=== PATIENT | male | born 1990 | race Caucasian/White ===

== ENCOUNTER 2021-03-25 13:26 | Emergency (ER) | payer SELFPAY ==
[2021-03-25 13:32] VITALS: BP 152/101; PULSE 100; RESP 16; TEMP 36.6; O2SAT 96; BMI 43.7
--- NOTE | 2021-03-25 15:25 | W.ED.NECK ---
Documented by User: Elida Jeremycarli 03/25/21 15:53 HPI - Neck Pain/Injury General: Chief Complaint: Neck Pain/Injury Stated Complaint: PAINS IN NECK Time Seen by Provider: 03/25/21 15:14 Source: patient Mode of arrival: ambulatory Limitations: no limitations History of Present Illness: HPI Narrative: 30-year-old male patient presents to the emergency department with a mass to his left side of his neck. Patient states he has had this for almost a year and his primary care physician has been monitoring it as it started out small patient states over the last few days it he noticed it has grown quite a bit is hard and painful. Patient denies any difficulty swallowing. Patient denies any chest pain or shortness of breath. Patient denies any fever. Patient denies any recent illness. Patient states he is otherwise healthy. Associated symptoms: Denies dysphagia, difficulty walking, dizziness, headache(s) or nausea Review of Systems Const: Denies: fever(s), chills, body aches, change in appetite, change in weight, fatigue, malaise or diaphoresis Eyes: Denies: change in vision, blurry vision, blind spots, photophobia, eye discomfort, eye discharge, eye redness, floaters or seeing flashes ENMT: Reports: other (Neck pain with mass to left side of neck); Denies: throat pain, uvular edema, enlarged tonsils, odynophagia, hoarseness, mouth pain, swelling of lips/tongue, oral sores, bleeding gums, dental pain, dry mouth, ear or mastoid pain, ear discharge, change in hearing, tinnitus, disequilibrium, nasal discharge, nasal congestion, post nasal drip or sinus pain Card: Denies: chest pain, palpitations, irregular heart rhythm, edema, swelling of feet/ankles, lightheadedness, syncope, pre-syncope, dyspnea on exertion, orthopnea, leg pain with exertion or acrocyanosis Resp: Denies: dyspnea, productive cough, non-productive cough, wheezing, stridor, pain on inspiration, change in phlegm color, hemoptysis or chest congestion GI: Denies: abdominal pain, nausea, vomiting, hematemesis, dysphagia, diarrhea, constipation, GI cramping, change in bowel habits or rectal pain : Denies: flank pain, dysuria, urinary frequency, urinary urgency, urinary hesitancy or hematuria Musc: Denies: neck pain, back pain, extremity pain, extremity swelling, joint pain, joint swelling, joint redness, joint warmth or deformity Skin/Breast: Denies: rash, pruritus, erythema, sores, new lesions, changes in skin color or dry skin Neuro: Denies: headache(s), numbness in extremities, weakness in extremities, sensory changes, lack of coordination, difficulty walking, frequent falls, dizziness, vertigo, confusion, behavioral changes, Slurred speech present, difficulty communicating thoughts or seizure-like activity Psych: Denies: anxiety, depression, suicidal ideation or homicidal ideation Endo: Denies: polyuria, polydipsia, tired all the time, cold intolerance, excessive sweating, flushing, hot flashes or heat intolerance Efra/Lymph: Denies: easy bruising, easy bleeding, petechiae, purpura, enlarged lymph nodes or tender lymph nodes All/Imm: Denies: urticaria, throat swelling, tongue swelling, facial swelling, acute wheezing or itchy eyes Physical Exam Const: COMMON NORMALS: no acute distress, average body habitus, no limitations, healthy appearing, alert and well nourished HENMT: COMMON NORMALS: normocephalic, atraumatic, hearing grossly normal bilaterally, external ears normal, EAC's normal, TM's normal bilaterally, Normal external nose present, Normal nasal mucous membranes and turbinates present, moist oral mucous membranes, oropharynx normal, dentition normal and gingiva normal HEAD & SCALP: normocephalic and atraumatic NOSE: Normal external nose present and Normal nasal mucous membranes and turbinates present EXTERNAL EAR: Yes external ears normal EXTERNAL AUDITORY CANAL: EAC's normal TYMPANIC MEMBRANE: TM's normal bilaterally THROAT: no uvular edema Eye: COMMON NORMALS: Equal, round and reactive pupils present, EOMs intact bilaterally, conjunctivae normal, no scleral icterus and no papilledema CONJUNCTIVA: Yes conjunctivae normal PUPIL: Yes Equal, round and reactive pupils present DIRECT OPHTHALMOSCOPY: Yes no papilledema Neck/C-Spine: COMMON NORMALS: no JVD Lymph: LYMPHATIC: no lymphadenopathy noted Resp: COMMON NORMALS: normal respiratory effort, No retractions, No use of accessory muscles, clear to auscultation bilaterally and percussion normal AUSCULTATION: clear to auscultation bilaterally PERCUSSION: percussion normal Cardio: COMMON NORMALS: no JVD, regular rate and regular rhythm RATE: regular rate RHYTHM: regular rhythm Neuro: SENSORIUM/ORIENTATION: Yes alert Psych: COMMON NORMALS: mental status grossly normal, Normal thought process present, cooperative, normal affect, speech normal, activity/motor behavior normal, denies hallucinations, denies homicidal ideation and denies suicidal ideation SPEECH: Yes normal speech THOUGHT PROCESS: Normal thought process present Skin: COMMON NORMALS: no rashes or lesions noted, no wounds, turgor normal, no jaundice, no petechiae and no mottling GENERAL SKIN EXAM: no rashes or lesions noted and turgor normal Course Vital Signs: Vital signs: Vital Signs Temperature 98 F 03/25/21 13:32 Pulse Rate 90 03/25/21 18:29 Respiratory Rate 16 03/25/21 18:29 Blood Pressure 149/92 03/25/21 18:29 Pulse Oximetry 96 03/25/21 18:29 MDM - Neck Pain/Injury Lab Data: Labs: Lab Results 03/25/21 03/25/21 Range/Units 17:00 17:00 WBC 11.7 H (4.0-10.0) 10^3/ uL RBC 4.91 (4.1-5.3) 10^6/u L Hgb 13.9 (11.7-16.6) g/dL Hct 43.4 (42.0-52.0) % MCV 88.4 (80-94) fL MCH 28.3 (28.0-34.0) pg MCHC 32.0 (30.0-36.0) g/dL RDW 13.5 (12.1-15.1) % Plt Count 341 (130-400) 10^3/c mm MPV 9.8 (7.4-10.4) fL Neut % (Auto) 68.2 % Lymph % (Auto) 20.1 % [place] % (Auto) 9.0 % Eos % (Auto) 1.5 % Baso % (Auto) 0.8 % Neut # (Auto) 7.95 H (1.8-7.7) 10^3/u L Lymph # (Auto) 2.3 (0.8-4.8) 10^3/u L [place] # (Auto) 1.1 H (0.2-0.9) 10^3/u L Eos # (Auto) 0.2 (0.0-0.8) 10^3/u L Baso # (Auto) 0.1 (0.0-0.1) 10^3/u L Nucleated RBC % (a uto) 0 % Nucleated RBCs # 0.0 /100WBC Sodium 133 L (136-145) mmol/L Potassium 4.0 (3.5-5.1) mmol/L Chloride 97 L (98-107) mmol/L Carbon Dioxide 28 (22-29) mmol/L Anion Gap 12.0 (5-19) BUN 12 (6-20) mg/dL Creatinine 0.7 (0.7-1.2) mg/dL GFR Calculation 132.4 H (90-130) mL/min Glucose 92 (65-115) mg/dL Calculated Osmolal ity 275 L (285-295) mOsm/k g Calcium 9.3 (8.5-10.5) mg/dL Total Bilirubin 0.5 (0.15-1.2) mg/dL AST 16 (0-40) U/L ALT 21 (0-41) U/L Alkaline Phosphata se 88 (40-130) IU/L Total Protein 7.3 (6.6-8.7) g/dL Albumin 4.1 (3.5-5.2) g/dL Globulin 3.2 (1.3-4.6) g/dL Discharge Plan Discharge Patient Disposition: Home Clinical Impression: Mass of soft tissue of neck, Lymph nodes enlarged Condition: Stable Prescriptions: New Augmentin 500-125 mg tablet 1 tab PO BID 10 Days Qty: 20 RF: 0 Medrol (Shorty) 4 mg tablets,dose pack See Rx Instructions .ROUTE .COMPLEX Qty: 21 RF: 0 Discharge Orders: Discharge ED (Routine); Ordered 03/25/21 Ordered By: Yordan Castillo Discharge Diet: Regular Discharge Activity: Resume usual activity Patient Instructions: Lymphadenopathy (ED) Activity Restrictions/Additional Instructions: Follow-up with medical provider as directed. associate store manager only contacting you in the next several days to set up an appointment with ENT for further evaluation and biopsy. You can start taking your steroid Dosepak tomorrow morning. The rest of the prescriptions you can get filled tonight and take first dose tonight. Take medications as prescribed. Return to the ER or your medical provider if condition worsens. Please read and understand discharge instructions. Thank you for choosing [facility] for your healthcare needs today. Please realize this is an emergency room and that we are providing you with a medical screening exam and this may not be complete and all inclusive of all the testing and or work up that you may need to determine your ailment or severity of your illness. It is very important that you follow up as instructed or that you return to the Emergency Department should you have concerns or if your condition changes or worsens in any way. Sign Out Sign Out Data: Patient Sign Out occurred on 03/25/21 at 17:11. Patient's care was discussed, and care was transferred from to JULIET Costello. Coding Level of Care Code ED Shaft Sinker for Chg Fwd Exam Comprehensive Documented by User: JULIET Costello 03/25/21 18:59 HPI - Neck Pain/Injury General: Chief Complaint: Neck Pain/Injury Stated Complaint: PAINS IN NECK Time Seen by Provider: 03/25/21 15:14 Course Vital Signs: Vital signs: Vital Signs Temperature 98 F 03/25/21 13:32 Pulse Rate 90 03/25/21 18:29 Respiratory Rate 16 03/25/21 18:29 Blood Pressure 149/92 03/25/21 18:29 Pulse Oximetry 96 03/25/21 18:29 MDM - Neck Pain/Injury MDM Narrative: Medical decision making narrative: Patient is a 30-year-old male comes to the ED with a mass on left side of neck. Patient says it is painful now but does not obstruct his airway. Patient denies any other symptoms. CBC and CMP were unremarkable. CT of neck showed multiple enlarged lymph nodes with some fat stranding on the left carotid chain. Also a soft tissue density encasing the distal left common carotid artery with fat stranding present as well. Unknown if it is infectious, inflammatory or neoplastic. Radiologist recommended a tissue biopsy to be done. I placed an order with case management for patient be referred to an ENT doctor to get a biopsy done. Patient was discharged home given a prescription for Augmentin and a Medrol Dosepak. I also sent him home with a prescription for written hydrocodone 5/325 mg 8 tablets for pain. Return to ED precautions given. I told patient that special education case manager only contacting the next several days set up an appoint with ENT to get further evaluation of neck mass. Patient understood and agreed with plan. Lab Data: Attestation: I reviewed the patient's lab results. Labs: Lab Results 03/25/21 03/25/21 Range/Units 17:00 17:00 WBC 11.7 H (4.0-10.0) 10^3/ uL RBC 4.91 (4.1-5.3) 10^6/u L Hgb 13.9 (11.7-16.6) g/dL Hct 43.4 (42.0-52.0) % MCV 88.4 (80-94) fL MCH 28.3 (28.0-34.0) pg MCHC 32.0 (30.0-36.0) g/dL RDW 13.5 (12.1-15.1) % Plt Count 341 (130-400) 10^3/c mm MPV 9.8 (7.4-10.4) fL Neut % (Auto) 68.2 % Lymph % (Auto) 20.1 % Assumption % (Auto) 9.0 % Eos % (Auto) 1.5 % Baso % (Auto) 0.8 % Neut # (Auto) 7.95 H (1.8-7.7) 10^3/u L Lymph # (Auto) 2.3 (0.8-4.8) 10^3/u L Assumption # (Auto) 1.1 H (0.2-0.9) 10^3/u L Eos # (Auto) 0.2 (0.0-0.8) 10^3/u L Baso # (Auto) 0.1 (0.0-0.1) 10^3/u L Nucleated RBC % (a uto) 0 % Nucleated RBCs # 0.0 /100WBC Sodium 133 L (136-145) mmol/L Potassium 4.0 (3.5-5.1) mmol/L Chloride 97 L (98-107) mmol/L Carbon Dioxide 28 (22-29) mmol/L Anion Gap 12.0 (5-19) BUN 12 (6-20) mg/dL Creatinine 0.7 (0.7-1.2) mg/dL GFR Calculation 132.4 H (90-130) mL/min Glucose 92 (65-115) mg/dL Calculated Osmolal ity 275 L (285-295) mOsm/k g Calcium 9.3 (8.5-10.5) mg/dL Total Bilirubin 0.5 (0.15-1.2) mg/dL AST 16 (0-40) U/L ALT 21 (0-41) U/L Alkaline Phosphata se 88 (40-130) IU/L Total Protein 7.3 (6.6-8.7) g/dL Albumin 4.1 (3.5-5.2) g/dL Globulin 3.2 (1.3-4.6) g/dL Imaging Data^: Other CT: Attestation: I personally reviewed and interpreted this imaging study as follows: Radiologist's impression: [id number] [address] [address] Scan Report Signed Patient: Deric Carson Unit #: [id number] : 1990 Age/Sex: 30 / M ADM Date: 03/25/21 Loc: ER Room/Bed: Attending Dr: Ordering Provider/Ordering MD: Elida Puri NP Date of Service: 03/25/21 Procedure(s): CT neck w con* [id number] Accession Number(s): [id number] Report Number: [id number] PROCEDURE INFORMATION: Exam: CT Neck With Contrast Exam date and time: 03/25/2021 3:28 PM Age: 30 years old Clinical indication: Mass, lump, or swelling in neck; Left; Additional info: Soft tissue - left sided mass and pain TECHNIQUE: Imaging protocol: Computed tomography images of the neck with contrast. Radiation optimization: All CT scans at this facility use at least one of these dose optimization techniques: automated exposure control; mA and/or kV adjustment per patient size (includes targeted exams where dose is matched to clinical indication); or iterative reconstruction. Contrast material: OMNI 300; Contrast volume: 95 ml; Contrast route: INTRAVENOUS (IV); COMPARISON: No relevant prior studies available. RADIATION DOSE METRICS: Total DLP (mGy-cm): 593.47 FINDINGS: Paranasal sinuses: Mild mucosal thickening in the left maxillary sinus. No air-fluid levels. Nasopharynx: Unremarkable. Oropharynx: Unremarkable. No significant tonsillar enlargement. Hypopharynx: Unremarkable. Larynx: Unremarkable. Normal epiglottis. Retropharyngeal space: Unremarkable. Submandibular/Parotid glands: Normal. Glands are normal in size. Thyroid: Normal. No enlarged or calcified nodules. Lymph nodes: Multiple enlarged inhomogenous left carotid chain lymph nodes, the largest measuring 2.6 cm, at the level of the carotid bifurcation. Trachea: Visualized trachea is unremarkable. Lungs: Unremarkable as visualized. Bones/joints: Unremarkable. No acute fracture. Vasculature: Mild stranding and soft tissue density in the left carotid space, encasing the distal common carotid artery and bifurcation without narrowing. There is patency but compression of the left internal jugular vein by the enlarged lymph nodes. Soft tissues: Unremarkable. No significant soft tissue swelling. CT/CT neck w con* [id number] IMPRESSION: 1. Multiple enlarged left carotid chain lymph nodes with adjacent fat stranding. These could be is infectious, inflammatory, or neoplastic. Tissue sampling is suggested. 2. Fat stranding with fluid and possible soft tissue density encasing the distal left common carotid artery and bifurcation without arterial narrowing. 3. Compression and narrowing of the left internal jugular vein. Radiation Dose CTDIVOL = (mGy): DLP = 593.47 (mGy-cm) Dictated By: Morgan Thompson Signed By: Morgan Thompson Signed Date/Time: 03/25/211730 DD/ 28 Discharge Plan Discharge Patient Disposition: Home Clinical Impression: Mass of soft tissue of neck, Lymph nodes enlarged Condition: Stable Prescriptions: New Augmentin 500-125 mg tablet 1 tab PO BID 10 Days Qty: 20 RF: 0 Medrol (Shorty) 4 mg tablets,dose pack See Rx Instructions .ROUTE .COMPLEX Qty: 21 RF: 0 Discharge Orders: Discharge ED (Routine); Ordered 03/25/21 Ordered By: Yordan Castillo Discharge Diet: Regular Discharge Activity: Resume usual activity Patient Instructions: Lymphadenopathy (ED) Activity Restrictions/Additional Instructions: Follow-up with medical provider as directed. associate store manager only contacting you in the next several days to set up an appointment with ENT for further evaluation and biopsy. You can start taking your steroid Dosepak tomorrow morning. The rest of the prescriptions you can get filled tonight and take first dose tonight. Take medications as prescribed. Return to the ER or your medical provider if condition worsens. Please read and understand discharge instructions. Thank you for choosing [facility] for your healthcare needs today. Please realize this is an emergency room and that we are providing you with a medical screening exam and this may not be complete and all inclusive of all the testing and or work up that you may need to determine your ailment or severity of your illness. It is very important that you follow up as instructed or that you return to the Emergency Department should you have concerns or if your condition changes or worsens in any way. Sign Out Sign Out Data: Patient Sign Out occurred on 03/25/21 at 17:11. Patient's care was discussed, and care was transferred from to JULIET Costello. Coding Level of Care Code ED Shaft Sinker for Anthony Francis Exam Comprehensive
--- NOTE | 2021-03-25 15:28 | CTR_ITS ---
PROCEDURE INFORMATION: Exam: CT Neck With Contrast Exam date and time: 03/25/2021 3:28 PM Age: 30 years old Clinical indication: Mass, lump, or swelling in neck; Left; Additional info: Soft tissue - left sided mass and pain TECHNIQUE: Imaging protocol: Computed tomography images of the neck with contrast. Radiation optimization: All CT scans at this facility use at least one of these dose optimization techniques: automated exposure control; mA and/or kV adjustment per patient size (includes targeted exams where dose is matched to clinical indication); or iterative reconstruction. Contrast material: OMNI 300; Contrast volume: 95 ml; Contrast route: INTRAVENOUS (IV); COMPARISON: No relevant prior studies available. RADIATION DOSE METRICS: Total DLP (mGy-cm): 593.47 FINDINGS: Paranasal sinuses: Mild mucosal thickening in the left maxillary sinus. No air-fluid levels. Nasopharynx: Unremarkable. Oropharynx: Unremarkable. No significant tonsillar enlargement. Hypopharynx: Unremarkable. Larynx: Unremarkable. Normal epiglottis. Retropharyngeal space: Unremarkable. Submandibular/Parotid glands: Normal. Glands are normal in size. Thyroid: Normal. No enlarged or calcified nodules. Lymph nodes: Multiple enlarged inhomogenous left carotid chain lymph nodes, the largest measuring 2.6 cm, at the level of the carotid bifurcation. Trachea: Visualized trachea is unremarkable. Lungs: Unremarkable as visualized. Bones/joints: Unremarkable. No acute fracture. Vasculature: Mild stranding and soft tissue density in the left carotid space, encasing the distal common carotid artery and bifurcation without narrowing. There is patency but compression of the left internal jugular vein by the enlarged lymph nodes. Soft tissues: Unremarkable. No significant soft tissue swelling. CT/CT neck w con* [id number] IMPRESSION: 1. Multiple enlarged left carotid chain lymph nodes with adjacent fat stranding. These could be is infectious, inflammatory, or neoplastic. Tissue sampling is suggested. 2. Fat stranding with fluid and possible soft tissue density encasing the distal left common carotid artery and bifurcation without arterial narrowing. 3. Compression and narrowing of the left internal jugular vein. Radiation Dose CTDIVOL = (mGy): DLP = 593.47 (mGy-cm)
[2021-03-25] MEDS: iohexol 300 mg/mL 100 mL Btl IV (16:53)
[2021-03-25 17:11] LABS: Basophils # 0.1 10^3/uL (0.0-0.1); Basophils % 0.8 %; Eosinophils # 0.2 10^3/uL (0.0-0.8); Eosinophils % 1.5 %; Hematocrit 43.4 % (42.0-52.0); Hemoglobin 13.9 g/dL (11.7-16.6); Lymphocytes # 2.3 10^3/uL (0.8-4.8); Lymphocytes % 20.1 %; Mean Corpuscular Hemoglobin 28.3 pg (28.0-34.0); Mean Corpuscular Volume 88.4 fL (80-94); Mean Platelet Volume 9.8 fL (7.4-10.4); Monocytes # 1.1 10^3/uL (0.2-0.9); Neutrophils # 7.95 10^3/uL (1.8-7.7); Neutrophils % 68.2 %; Nucleated Red Blood Cells % 0 %; Platelet Count 341 10^3/cmm (130-400); Red Blood Count 4.91 10^6/uL (4.1-5.3); Red Cell Distribution Width 13.5 % (12.1-15.1); White Blood Count 11.7 10^3/uL (4.0-10.0)
[2021-03-25 17:39] LABS: Alanine Aminotransferase 21 U/L (0-41); Albumin Level 4.1 g/dL (3.5-5.2); Alkaline Phosphatase 88 IU/L (40-130); Aspartate Amino Transferase 16 U/L (0-40); Blood Urea Nitrogen 12 mg/dL (6-20); Calcium 9.3 mg/dL (8.5-10.5); Carbon Dioxide 28 mmol/L (22-29); Chloride 97 mmol/L (98-107); Globulin 3.2 g/dL (1.3-4.6); Glomerular Filtration Rate 132.4 mL/min (90-130); Glucose 92 mg/dL (65-115); Osmolality Calculated 275 mOsm/kg (285-295); Sodium 133 mmol/L (136-145); Total Bilirubin 0.5 mg/dL (0.15-1.2); Total Protein 7.3 g/dL (6.6-8.7)
[2021-03-25] MEDS: HYDROcodone-acetaminophen 7.5-325 mg Tablet 1 TAB PO (18:21)
[2021-03-25] MEDS: dexamethasone 10 mg/mL INJ IM (18:21)
[2021-03-25 18:29] VITALS: BP 149/92; PULSE 90; RESP 16; O2SAT 96
--- NOTE | 2021-03-26 09:52 | DCPLANNER ---
sr. payroll manager had message to schedule a followup appointment for patient with ENT, Dr. Harvey, for a neck mass with enlarged lymph nodes. sr. payroll manager emailed patients information to Estella Root and Leonora at [facility] General Surgery / ENT clinic. Patients information will be printed and reviewed. Clinic will call patient with appointment information.
--- NOTE | 2021-03-29 11:52 | DCPLANNER ---
Patient has a follow up appointment scheduled for Thursday, April 01, 2021 at 11:[address] Harvey at [facility] ENT. Clinic will call patient with appointment information.
--- NOTE | 2021-04-11 08:58 | DCPLANNER ---
Patient did attend appointment scheduled with ent.
== END 2021-03-25 18:30 | disposition home or self-care (01) ==
PROVIDERS: Registered Nurse; Emergency Provider Physician Assistant
DX: R59.9 Enlarged lymph nodes, unspecified (principal); R22.1 Localized swelling, mass and lump, neck
CPT/HCPCS: 36415; 70491; 80053; 85025; 96372; 99283; J1100; Q9967

== ENCOUNTER → 2021-04-05 15:16 | Outpatient (BNVA) | payer OTHER, SELFPAY | PROVIDERS: Visit Provider Surgery | DX: Z20.822 Contact with and (suspected) exposure to COVID-19 (principal) | CPT/HCPCS: 87635 ==

== ENCOUNTER 2021-04-10 07:10 | Day surgery (SDC) | payer SELFPAY ==
[2021-04-09 10:18] VITALS: BMI 43.5
[2021-04-10] VITALS (23 sets, daily range): BP systolic 95–147; BP diastolic 65–100; PULSE 72–98; RESP 12–21; TEMP 36.2–36.8; O2SAT 92–99
--- NOTE | 2021-04-10 07:56 | W.PM.OPSUD ---
Surgery/Procedure H&P Update DATE OF PROCEDURE: April 10, 2021 DATE H&P PERFORMED: 04/01/21 H&P UPDATE INFORMATION: I have reviewed H&P completed within last 30 days, I have examined patient prior to procedure and No changes to prior documentation PREOP DIAGNOSIS: Left matted neck mass/lymph nodes PRIMARY INDICATION FOR PROCEDURE: Same PLANNED PROCEDURE: Operation Date: 04/10/21 08:40 Proposed Procedures p EXCISIONAL BIOPSY LEFT NECK MASS/LYMPH NODE 04782 m79.89 r59.9(Not Applicable) - Quintin Harvey MD
[2021-04-10] MEDS: sodium chloride 0.9% 1,000 ML 30 ML IV (08:02)
--- NOTE | 2021-04-10 08:31 | ANES.PREANE2 ---
Pre-Anesthetic Assessment Pre-Anesthetic Assessment: Height/Weight: Height 1.85 m Weight 149.685 kg Temp Pulse Resp BP Pulse Ox 97.3 F L 75 16 147/100 99 04/10/21 07:35 04/10/21 07:35 04/10/21 07:35 04/10/21 07:35 04/10/21 07:35 Preop Diagnosis: Left matted neck mass/lymph nodes Proposed Procedure: Operation Date: 04/10/21 08:40 Proposed Procedures p EXCISIONAL BIOPSY LEFT NECK MASS/LYMPH NODE 44178 m79.89 r59.9(Not Applicable) - Quintin Harvey MD Was Beta Paul taken within 24 hours: N/A Was Clonidine taken within 24 hours: N/A Last intake: Intake Last Liquid Date 04/09/21 Last Liquid Time 21:00 Last Solid Date 04/09/21 Last Solid Time 21:00 Social: Social History: No alcohol and No tobacco Exam: Pre-Anes Outpt Exam: alert, oriented x 3, clear to auscultation bilaterally and regular rate & rhythm Airway: Submandibular: WNL Cervical ROM: WNL MP: 2 Dentition: Full History/ROS: No significant history except as noted Metabolic: Metabolic: Morbid obesity Anesthetic Plan: ASA status: 2 Anesthesia: General Risk of > 500 ml blood loss (7ml/kg in children): No Meds/Allergies Current Medications: Current Medications Generic Name Dose Route Start Last Admin Trade Name Freq PRN Reason Stop Dose Admin Sodium Chloride 1,000 mls @ 30 ml s/hr 04/10/21 07:30 04/10/21 08:02 Sodium Chloride 0.9% IV 04/11/21 07:29 30 mls/hr .Q24H ABISAI Administration PFSH Anesthesia PFSH: Social History Smoking and tobacco status: never smoked Data Anesthesia Cardiac Studies: No Data to Display
[2021-04-10] MEDS: ceFAZolin 3,000 MG in sodium chloride 0.9% (100 ml) 100 ML 200 MG IV (09:23)
[2021-04-10] MEDS: neomycin-poly-bacitracin oint 28 gm 1 APPLIC TOPICAL (11:29)
--- NOTE | 2021-04-10 11:30 | PM.OP ---
Operative Report Date of procedure: April 10, 2021 Pre-op Diagnosis: Left matted neck mass/lymph nodes Post-op diagnosis: same Post-op Findings: Large matted lymph nodes with scarring and small pocket of purulent material deep to sternocleidomastoid muscle and adherent to internal jugular vein. Procedure Done: Left cervical lymphadenectomy with deep excisional biopsy of multiple matted lymph nodes. Implants: None Specimens removed/disposition: Left neck matted scarred lymph nodes Pathology: Left neck mass sent for frozen section and fresh handling Surgeon: Quintin Harvey Anesthesia: General Estimated blood loss (mL): 50 Complications: No complications encountered Findings: Large matted lymph nodes poorly defined deep to sternocleidomastoid muscle and extending down to the great vessels and the carotid sheath and adherent to the internal jugular vein. Large mass of these lymph nodes removed. Small less than 5 mL of pus expressed when Allis clamp applied. Condition: stable Disposition: PACU Brief History: 30-year-old male patient has had a left neck mass present for over a year. Recently he had sudden swelling and pain in the left neck. Patient was seen in the emergency room and CAT scan showed the mass-effect but did not show any large abscess. Patient is therefore being brought to the operating room at this time to undergo excisional biopsy of lymph nodes from the left neck. The procedure risks and complications were explained in detail. Risks included bleeding infection numbness scarring swelling bruising recurrence need for additional treatment as this is a diagnostic procedure only and more serious risk such as heart attack stroke or not surviving the surgery. Patient understands that nerves in the area that serve sensation as well as nerves affecting the neck shoulder face and vocal cords are at risk as well. With these things understood informed consent was granted. Procedure: Description of procedure: The patient was placed on the operating table in supine position. Adequate general endotracheal tube anesthesia was obtained. He was given Ancef IV for prophylaxis. He was repositioned into a semirecumbent position. His neck was prepped with ChloraPrep. Signed the site was noted. A timeout was accomplished identifying the patient date of plan procedure allergies fire risk and medications given. With all in agreement the procedure continued. Patient was prepped and draped in usual fashion. A marking pen was used to outline a curvilinear incision over the sternocleidomastoid muscle near the mastoid tip extending down into the lower neck skin crease line. The incision was created with the needle tip Bovie carrying it down to the subcutaneous tissue and fat. Then dissection was accomplished and needle tip Bovie or bipolar cautery was used to remove cut through the tissues. Patient had a massive greater auricular nerve that was identified and preserved. Dissection was carried out in a plane extending over the sternocleidomastoid muscle over the anterior edge and then to the medial surface. The dissection was then carried deep to the sternocleidomastoid muscle getting into the area around the matted lymph nodes. Once these were exposed careful dissection was carried out from all directions from superior inferior anterior and posterior. Care was taken to preserve important vessels including the internal jugular vein carotid artery 10th nerve. After careful dissection a clamp was placed towards the end of the dissection and a small amount of pus yellow in color was expressed. Less than 5 mL. Finally the specimen was resected and freed from the surrounding tissue and sent to the pathologist fresh for frozen section as well has proper handling of lymph nodes. The pathology returned as chronic and acute inflammation with no definitive malignancy identified. The patient did have still a section of the matted lymphadenopathy inferiorly but this did not appear to contain any purulent material and therefore further dissection was not carried out. The area was irrigated with saline and a Delcambre drain was placed to the depths of the defect bringing out inferiorly in the incision. The subcutaneous tissue was closed with interrupted 4-0 chromic and the skin was closed with skin justino. The drain was stapled as well to the skin. The area was cleansed. Neosporin ointment was applied followed by a large pressure dressing around the neck. The patient tolerated the procedure well had an estimated blood loss of 50 mL and arrived in recovery in stable condition.
[2021-04-10] MEDS: fentaNYL 50 mcg/mL INJ 2mL IVP ×2 (12:02→12:08)
[2021-04-10] MEDS: ondansetron 2 mg/ML SDV 2 mL 4 MG IVP ×2 (12:06→12:36)
[2021-04-10] MEDS: HYDROmorphone 1 mg/mL INJ 1 mL 0.5 MG IVP ×2 (12:27→12:42)
[2021-04-10] MEDS: diphenhydrAMINE 50 mg/mL SDV 1mL 12.5 MG IVP (13:52)
--- NOTE | 2021-04-10 14:11 | ANE.PACU2 ---
Inpatient post-anesthesia follow up: Airway intact: Yes Vital signs: Temperature 97.9 F Pulse Rate 79 Respiratory Rate 14 Blood Pressure 111/92 Pulse Oximetry 97 Oxygen Delivery Me thod Nasal Cannula Oxygen Flow Rate 2 Fraction of Inspir ed Oxygen Hydration adequate: Yes Nausea and vomiting: Yes Pain level: 3 Mental status: Baseline
[2021-04-15 05:47] LABS: Miscellaneous Test See Scanned Lab Rpt
[2021-04-25 12:28] LABS: Miscellaneous Test See Scanned Lab Rpt
== END 2021-04-10 15:20 | disposition home or self-care (01) ==
PROVIDERS: PCP Family Medicine; Visit Provider Otolaryngology
PROC: (CPT 38510; principal; 2021-04-10 08:30)
DX: R59.9 Enlarged lymph nodes, unspecified (principal); E66.01 Morbid (severe) obesity due to excess calories; Z68.36 Body mass index [BMI] 36.0-36.9, adult
CPT/HCPCS: 38510; 87070; 87176; 87205; 88184; 88185; 88271; 88275; 88305; 88331; 96365; J0690; J1100; J1170; J1200; J2405; J2704; J3010; J3490; J7030

== ENCOUNTER 2021-05-08 15:11 | Outpatient (CLI) | payer SELFPAY ==
--- NOTE | 2021-05-08 17:33 | ONC CON_ITS ---
Dr. Saba New Patient Note Patient: Deric Carson Unit #: [id number]: 1990 Dicatated By: Jeff Saba M.D.Date of Visit: May 08, 2021 Onc MED New Patient/Consult Referring Physician: Quintin Harvey History of Present Illness: Mr. Deric Carson, is a 30-year-old gentleman with year-long history of left neck mass, as per patient it was ping-pong ball sized and remained same until recently on March 25, 2021 he went to hospital with left neck fullness and pain of few days duration, patient denies any vomiting with swallowing denies any dental problem denies any fever chills CT scan of neck was done on March 25, 2021 showed multiple enlarged inhomogeneous left carotid chain lymph nodes, the largest measuring 2.6 cm at the level of the carotid bifurcation, fat stranding with fluid and possible soft tissue density encasing distal left common carotid artery and bifurcation without arterial narrowing. Compression and narrowing of left internal jugular vein., Patient was evaluated by ENT physician Dr. Harvey and on April 10, 2021 he underwent left cervical lymphadenectomy with deep excision biopsy of multiple matted lymph nodes, prelim frozen section impression was abscess contents, negative for malignancy, flow cytometry was done and it was negative to FISH was also negative but histopathology/immunohistochemistry confirmed diffuse large B-cell lymphoma, germinal center type, positive for CD45, CD20, CD10, c-Myc, CD79a, BCL6, CD30, PAX 5,. Negative for GMS, AFB, Warthin-Starry, PAS-D Patient denies any night sweats, denies any recurrent fever, denies any weight loss rather gain, denies any mouth sores or history of gingivitis or dental problem, denies any peripheral lymphadenopathy or abdominal fullness Past Medical History: Mr. Carson's medical history is unremarkable. Past Surgical History: Mr. Carson's surgical/procedural history consists of cervical lymphadenectomy in 2020. Medications: traMADol HCl 1 Tablet (of 50 mg) Oral q 6 hours PRN Allergies: No Known Allergies. Social History: Mr. Carson is . Mr. Carson has never smoked. Family History: Mr. Carson's mother is alive. Mr. Carson's father at age 65: congestive heart failure, and seizure. Mr. Carson has 1 brother who is alive. Review Of Symptoms: Review of Systems is not available for this patient. Vital Signs: Performed on May 08, 2021 15:48: 1, 43.54 (HIGH), 2.66 sq.m, 73 in, 98 %, 97 /min, 18 /min, 127/80 mm(hg), 98.3 F (LOW), and 330.0 lbs (HIGH). Performance Status: 0 - Fully active, able to carry on all predisease activities without restrictions. (ECOG) Physical Examination: ENMT - No mouth sores, no thrush, no jaundice, Fullness in left neck well-healed surgical scar due to recent left neck lymph node dissection, Respiratory - Lungs are clear to auscultation, Cardiovascular - Regular rate and rhythm of heart, Abdomen - Soft, bowel sounds present, Extremities - No visible edema, no peripheral lymphadenopathy. Lab/Imaging: Most recent lab results are not available for this patient. Impression: Diffuse large B-cell lymphoma, germinal center type immunohistochemistry positive for CD45, CD20, CD10, c-Myc, CD79a, BCL6, Ki-67, CD30, PAX 5 Negative for GMC, AFB, Warthin-Starry, PAS-D FISH negative for MYC, BCL 6, IGH/BCL-[address] rearrangement Flow [address] CT scan of neck done on March 25, 2021 showed multiple enlarged left carotid chain lymph nodes with adjacent fat stranding, with fluid and possible soft tissue density encasing the distal left common carotid artery and bifurcation without arterial narrowing. Compression and narrowing of left internal jugular vein. Plan: Discussed with patient regarding his left neck lymph node biopsy report which confirmed diffuse large B-cell lymphoma, germinal center type but flow cytometry was negative and FISH was negative and initial impression was puslike material with no evidence of malignancy, concern is whether patient has chronic infection like tuberculosis or granulomatous with severe lymphoid reaction. Discussed with pathology PCR for Mycobacterium was requested, will also discuss with pathology regarding confirmation of diagnosis if any further testing is needed in the meantime we will order CT scan of chest abdomen pelvis for staging purposes, patient and his is considering second opinion Return to clinic after CT scan of chest abdomen pelvis with CBC CMP and LDH, in the meantime, we will discuss with pathology. Signed By: Jeff Saba M.D. <<Signature on File>>
== END 2021-05-08 15:12 | disposition home or self-care (01) ==
LOC: ONCMED 15:15
PROVIDERS: PCP Family Medicine; Visit Provider Internal Medicine Hematology & Oncology
DX: C83.31 Diffuse large B-cell lymphoma, lymph nodes of head, face, and neck (principal)
CPT/HCPCS: 99205

== ENCOUNTER 2021-05-16 14:35 | Outpatient (CLI) | payer SELFPAY ==
--- NOTE | 2021-05-16 15:02 | CT_ITS ---
WS: [id number] CT CHEST, ABDOMEN, AND PELVIS TECHNIQUE: Contrast-enhanced CT of the chest, abdomen, and pelvis with coronal and sagittal reformatt ed images. CLINICAL INFORMATION: LYMPHOMA COMPARISON: Neck CT in March 2021 DLP: 3187.[address] scans at [facility] use at least one of these dose optimization techniques: automated e xposure control; mA and/or kV adjustment per patient size (includes targeted exams where dose is matc hed to clinical indication); or iterative reconstruction. CT CHEST: Both lungs are well aerated. No acute pulmonary infiltrates. No focal pneumonia or pleural fluid. Bib asilar atelectasis. Small 3 mm noncalcified nodule right upper lobe. Normal caliber thoracic aorta. P roximal main pulmonary arteries are normal. No mediastinal or hilar lymphadenopathy. No axillary lymphadenopathy. CT ABDOMEN AND PELVIS: Diffuse fatty infiltration of the liver. Normal GE junction. Normal spleen. Fatty atrophy of the panc reas. Adrenal glands are normal. Normal renal parenchymal enhancement. No hydronephrosis. Pancreas ap pears normal. Normal caliber abdominal aorta. No periaortic or retroperitoneal lymphadenopathy. Normal caliber abdominal aorta. No pelvic or inguin al lymphadenopathy. A few prominent lymph nodes along the central mesentery and right lower quadrant not pathologically enlarged. Normal sigmoid colon. No evidence of small or large bowel obstruction. CT/CT chest abd pel w con* IMPRESSION: 1. No adenopathy in the chest abdomen or pelvis. 2. 3 mm noncalcified nodule right upper lobe. Recommend 6 month follow-up. 3. Diffuse fatty infiltration of the liver. Mild hepatomegaly. 4. Normal spleen. 5. No other significant findings.
[2021-05-16] MEDS: iohexol 350 mg/mL 100 mL Btl IV (15:35)
== END 2021-05-16 14:36 | disposition home or self-care (01) ==
PROVIDERS: PCP Family Medicine; Visit Provider Internal Medicine Hematology & Oncology
DX: C83.31 Diffuse large B-cell lymphoma, lymph nodes of head, face, and neck (principal); K76.0 Fatty (change of) liver, not elsewhere classified; R16.0 Hepatomegaly, not elsewhere classified; R91.1 Solitary pulmonary nodule
CPT/HCPCS: 71260; 74177; Q9967